=== PATIENT | female | born 1940 | race Caucasian/White ===

== ENCOUNTER 2017-02-11 11:20 | Inpatient (IN) | payer MEDICARE ==
[2017-02-11 11:54] VITALS: BMI 49.2
[2017-02-11] MEDS ORDERED: Docusate 100 MG CAP PO PRN (14:31)
[2017-02-11] MEDS ORDERED: Milk Of Magnesia 30 ML UDCUP PO PRN (14:31)
[2017-02-11] MEDS ORDERED: Loratadine 10 MG TAB PO PRN (14:31)
[2017-02-11] MEDS ORDERED: diphenhydrAMINE HCl 25 MG CAP PO PRN (14:31)
[2017-02-11] MEDS ORDERED: Ondansetron ODT 4 MG TAB PO PRN (14:31)
[2017-02-11] MEDS ORDERED: Zolpidem Tartrate 5 MG TAB PO PRN (14:31)
[2017-02-11] MEDS ORDERED: Albuterol Sulfate 2.5 mg/3 ml Neb NEB PRN (14:45)
[2017-02-11] MEDS ORDERED: Polyethylene Glycol 3350 17 GM Packet PO PRN (14:52)
[2017-02-11] MEDS: Acetaminophen 500 MG TAB PO PRN (20:51)
[2017-02-11] MEDS: Carvedilol 6.25 MG TAB PO SCH (20:51)
[2017-02-11] MEDS: traMADol HCl 50 MG TAB PO PRN (20:52)
--- NOTE | 2017-02-11 22:11 | HP ---
DATE OF SERVICE: 02/11/2017 CHIEF COMPLAINT: Knee surgery. HISTORY OF PRESENT ILLNESS: The patient is a 76-year-old female with a past medical history of asthma, hypertension, and osteoarthritis who was transferred from the [facility] following left knee surgery. The patient notes that she has had multiple knee surgeries on both legs and her orthopedist noticed a free floating bony fragment on x-ray several months ago and recommended that she have repeat surgery to remove that fragment. The patient is now in a knee immobilizer and this has been recommended to continue for 6-8 weeks. The patient is weightbearing as tolerated on that side. She is at [facility] to help with transfers and to get stronger. She is from the [facility] and states that the tramadol and Tylenol that she is being given for pain is controlling everything. The patient does have a history of hypertension and she states her blood pressures have been well controlled. She also has a history of asthma and notes that she has been wheezing off and on, but is only on albuterol p.r.n. at home. PAST MEDICAL HISTORY: 1. Hypertension. 2. Osteoarthritis. 3. Asthma. PAST SURGICAL HISTORY: 1. Multiple knee surgeries on both the left and the right knee including replacement and patellar tendon repairs. 2. Hysterectomy. 3. Bilateral cataract removal. 4. Cervical laminectomy. 5. Tonsillectomy and adenoidectomy as a child. FAMILY HISTORY: Patient's dad had cancer and diabetes and her aunt had breast cancer. ALLERGIES: CELEBREX, TORADOL, and NAPROSYN. It should be noted that the patient is able to tolerate meloxicam and has been on that for multiple years. SOCIAL HISTORY: The patient does have a remote smoking history, but quit many years ago. She states that at home, she would usually have one Cocktail several times a week at night. MEDICATIONS: 1. Aspirin 325 mg p.o. daily. 2. Cymbalta 30 mg p.o. daily. 3. Lasix 40 mg p.o. daily. 4. Protonix 40 mg p.o. daily. 5. Tramadol 50 mg p.o. q.6 hours p.r.n. pain. 6. Tylenol 1000 mg p.o. q.6 hours p.r.n. pain. REVIEW OF SYSTEMS: GENERAL: Negative for fever, chills, night sweats. EYES: Negative for vision changes and eye pain. HEENT: Negative for sore throat, rhinorrhea and nasal congestion. CARDIOVASCULAR: Negative for chest pain, palpitations, orthopnea and PND. RESPIRATORY: Negative for shortness of breath. Positive for occasional cough and wheezing. GASTROINTESTINAL: Negative for nausea, vomiting, diarrhea, and constipation. GENITOURINARY: Negative for dysuria, and polyuria. MUSCULOSKELETAL: Positive for knee pain that is controlled with oral medications. The patient's knee is in a knee immobilizer. Negative for other joint pains or swelling. SKIN: Negative for rashes or lesions. PSYCHIATRIC: Negative for anxiety and depression. NEUROLOGIC: Negative for syncope and seizure. PHYSICAL EXAMINATION: VITAL SIGNS: Temperature 99.2, pulse 78, respiration rate 18, O2 saturation 98 % on room air, blood pressure 147/71. GENERAL: The patient is awake, alert, and oriented, in no acute distress. EYES: Pupils are equal, round, reactive to light and accommodation. Extraocular muscles intact. ENT: Oropharynx and nasopharynx without erythema or exudate. NECK: Supple without lymphadenopathy, thyromegaly or bruits. RESPIRATORY: Few scattered expiratory wheezes in the upper lung loving. The patient has no retractions. CARDIOVASCULAR: Regular rate and rhythm without murmurs, gallops, or rubs. LUNGS: Clear to auscultation bilaterally without wheezing or rhonchi. ABDOMEN: Soft, obese, nontender to palpation with bowel sounds present. EXTREMITIES: There is no clubbing or cyanosis. The patient does have trace bilateral lower extremity edema. MUSCULOSKELETAL: The patient has a knee immobilizer and placed on the left side. Patient has full range of motion of other extremities. PSYCHIATRIC: The patient displays an appropriate mood and affect. NEUROLOGIC: Cranial nerves II through XII are grossly intact. Deep tendon reflexes are 2/4. ASSESSMENT AND PLAN: 1. Status post left knee surgery: We still obtaining records on the patient's knee surgery from the [facility]. My understanding is that the patient must remain in her immobilizer for 6-8 weeks and she is weightbearing as tolerated currently. We will continue tramadol and Tylenol as needed for pain. Also, restart meloxicam which she took at home. 2. Hypertension: Patient's blood pressure is slightly elevated today. We will restart her home medications and monitor and adjust as needed. 3. Asthma: The patient is wheezing a little bit this morning. We will add nebs as needed for shortness of breath and wheezing. 4. Osteoarthritis: restart the patient's NSAIDs. 5. Generalized deconditioning: The patient was unable to transfer in and out of bed without assistance. She will be worked with PT and OT in order that she gets strong enough to be able to go home. 6. Gastrointestinal prophylaxis with Protonix. 7. Deep venous thrombosis prophylaxis. The patient was placed on a full strength aspirin following surgery. KIKI
[2017-02-12] MEDS: traMADol HCl 50 MG TAB PO PRN ×2 (05:18→20:11)
[2017-02-12] MEDS: Acetaminophen 500 MG TAB PO PRN ×2 (05:18→20:11)
[2017-02-12 05:24] LABS: #Eosinphils 0.2 thou/uL (0.0-0.7); #Lymphocytes 0.8 thou/uL (1.20-3.40); #Monocytes 0.7 thou/uL (0.11-0.59); %Basophils 0.6 % (0.0-1.0); %Eosinophils 3.5 % (0.0-10.0); %Lymphocytes 11.1 % (21.0-51.0); %Monocytes 10.8 % (0.0-10.0); Hemoglobin 10.9 g/dL (12.0-16.0); Mean Corpuscular HGB CONC 33.3 g/dL (32.0-36.0); Mean Corpuscular Hemoglobin 30.8 pg (27.0-31.0); Mean Corpuscular Volume 92.7 fl (81.0-99.0); Mean Platelet Volume 7.9 fL (7.4-10.4); Platelet Count 162 thou/uL (130-400); RBC Distribution Width 12.8 % (11.5-14.5); Red Blood Cell (RBC) Count 3.53 mill/uL (4.20-5.40); White Blood Cell (WBC) Count 6.8 thou/uL (4.8-10.8)
[2017-02-12 05:36] LABS: Anion Gap 15 mmol/L (10-20); BUN (Urea Nitrogen) 13 mg/dL (9.8-20.1); Calc. Creatinine Clearance 149 mL/min (70-130); Calcium 8.7 mg/dL (7.8-10.44); Carbon Dioxide 25 mmol/L (23-31); Chloride 104 mmol/L (98-107); Estimated GFR-MDRD 88; Glucose 99 mg/dL (83-110); Potassium 4.2 mmol/L (3.5-5.1); Sodium 140 mmol/L (136-145)
[2017-02-12] MEDS: Calcium Carbonate + Vit D 1 TAB PO SCH (09:29)
[2017-02-12] MEDS: Furosemide 40 MG TAB PO SCH (09:29)
[2017-02-12] MEDS: Losartan Potassium 25 MG TAB PO SCH (09:29)
[2017-02-12] MEDS: Multivitamin W/ Minerals 1 TAB PO SCH (09:29)
[2017-02-12] MEDS: Carvedilol 6.25 MG TAB PO SCH ×2 (09:30→20:11)
[2017-02-12] MEDS: Aspirin 325 mg Enteric Coated Tablet PO SCH (09:30)
--- NOTE | 2017-02-12 11:26 | PRG ---
DATE OF SERVICE: 02/12/2017 SUBJECTIVE: The patient is a 76-year-old female, status post left knee surgery by Dr. Pratima ernst who is at [facility] for further rehabilitation. The patient had to be moved from one room to another overnight and states that she did not sleep very well. She states that the pain in her left knee i s increasing and she is requesting a pain pill at this time. She notes that she has wheeze some ove rnight, but her breathing is a little bit better this morning. OBJECTIVE: VITAL SIGNS: Temperature 97.9, pulse 87, respiration rate 20, O2 saturation 94% on room air, blood pressure 113/68. GENERAL: The patient is alert and oriented, in no acute distress. CARDIOVASCULAR: Regular rate and rhythm without murmurs, gallops, or rubs. LUNGS: Have a few expiratory wheezes in the upper lung loving, but there are no retractions or tach ypnea. ABDOMEN: Soft, nontender, nondistended with bowel sounds present. EXTREMITIES: There is no clubbing or cyanosis. MUSCULOSKELETAL: The patient has a left knee immobilizer in place. PSYCHIATRIC: The patient displays appropriate mood and affect. LABORATORY DATA: 1. CBC: WBC 6.8, hemoglobin 10.9, hematocrit 32.7, platelets 162. 2. BMP: Sodium 140, potassium 4.2, chloride 104, bicarbonate 25, BUN 13, creatinine 0.66, glucose 99, calcium 8.7. ASSESSMENT AND PLAN: 1. Status post left knee surgery: Physical therapy will be working with the patient. We have clar ified that Dr. Burks's note says that she is to be weightbearing as tolerated in an immobilizer for 6 -8 weeks. 2. Generalized deconditioning: The patient has had trouble with transfers after her hospitalizatio n. She will work with PT and OT to improve her strength before going home. 3. History of asthma: Patient is wheezing a little bit. I have discussed with her the albuterol n ebs are available for her. 4. Osteoarthritis: The patient has tramadol for pain and I restarted Meloxicam as needed for pain and the patient is going to request on of these tablets this morning. 5. Hypertension: The patient's blood pressure is controlled this morning. We will continue her cu rrent home medications. 6. Gastrointestinal prophylaxis with Protonix.
[2017-02-13] MEDS: traMADol HCl 50 MG TAB PO PRN ×2 (09:01→21:05)
[2017-02-13] MEDS: Acetaminophen 500 MG TAB PO PRN ×2 (09:05→21:04)
[2017-02-13] MEDS: Meloxicam 7.5 MG TAB PO PRN (09:10)
[2017-02-13] MEDS: Carvedilol 6.25 MG TAB PO SCH ×2 (09:10→21:06)
[2017-02-13] MEDS: Multivitamin W/ Minerals 1 TAB PO SCH (09:10)
[2017-02-13] MEDS: Aspirin 325 mg Enteric Coated Tablet PO SCH (09:10)
[2017-02-13] MEDS: Furosemide 40 MG TAB PO SCH ×2 (09:10)
[2017-02-13] MEDS: Calcium Carbonate + Vit D 1 TAB PO SCH (09:10)
[2017-02-13] MEDS: Losartan Potassium 25 MG TAB PO SCH (09:10)
[2017-02-14] MEDS: Losartan Potassium 25 MG TAB PO SCH (09:24)
[2017-02-14] MEDS: Meloxicam 7.5 MG TAB PO PRN (09:24)
[2017-02-14] MEDS: Furosemide 40 MG TAB PO SCH (09:24)
[2017-02-14] MEDS: Aspirin 325 mg Enteric Coated Tablet PO SCH (09:25)
[2017-02-14] MEDS: Carvedilol 6.25 MG TAB PO SCH ×2 (09:25→21:34)
[2017-02-14] MEDS: Acetaminophen 500 MG TAB PO PRN ×2 (09:25→21:34)
[2017-02-14] MEDS: traMADol HCl 50 MG TAB PO PRN ×2 (09:26→21:35)
[2017-02-14] MEDS: Calcium Carbonate + Vit D 1 TAB PO SCH (09:27)
[2017-02-14] MEDS: Multivitamin W/ Minerals 1 TAB PO SCH (09:28)
[2017-02-14] MEDS: cloNIDine HCl 0.1 MG TAB PO PRN (21:35)
--- NOTE | 2017-02-15 01:16 | PRG ---
DATE OF SERVICE: 02/14/2017 SUBJECTIVE: The patient is a 76-year-old female status post left knee surgery to repair the patella and the patellar tendon who is at [facility] for further rehabilitation. The patient states that her pain is improved since having the Meloxicam. She notes that she has only had 1 bowel movement in the past week, but she is not uncomfortable and she knows that the medications that she can use as needed. OBJECTIVE: VITAL SIGNS: Temperature 98.5, pulse 80, respiratory rate 20, O2 sat 97% on room air, blood pressure 197/79. GENERAL: The patient is awake, alert and oriented, in no acute distress. CARDIOVASCULAR: Regular rate and rhythm without murmurs, gallops, or rubs. LUNGS: Clear to auscultation bilaterally without wheezing or rhonchi. ABDOMEN: Soft, nontender, nondistended with bowel sounds present. EXTREMITIES: There is no clubbing or cyanosis. MUSCULOSKELETAL: The patient has a left knee brace in place for immobilization. PSYCHIATRIC: Patient displays an appropriate mood and affect during the exam. ASSESSMENT AND PLAN: 1. Status post left knee surgery to repair the patellar and patellar tendon and remove the foreign body. The patient will resume physical therapy tomorrow. Patient's left knee brace was swapped out for a different knee brace because the previous one was uncomfortable. Patient still remains in immobilization. 2. Deconditioning: The patient is working with physical therapy and occupational therapy to improve strength and ability to transfer. 3. Asthma: Patient's breathing is improved and wheezing is much better. 4. Osteoarthritis: Patient uses tramadol and meloxicam for pain. 5. Hypertension. Patient's blood pressure is quite elevated this morning. She will be given her home medications. We will give clonidine as needed, it remains elevated. 6. Constipation: Patient will use p.r.n. constipation medications that have already been ordered.. 7. Gastrointestinal prophylaxis with Protonix. MTDD
[2017-02-15] MEDS: Multivitamin W/ Minerals 1 TAB PO SCH (08:43)
[2017-02-15] MEDS: Calcium Carbonate + Vit D 1 TAB PO SCH (08:43)
[2017-02-15] MEDS: Losartan Potassium 25 MG TAB PO SCH (08:43)
[2017-02-15] MEDS: Furosemide 40 MG TAB PO SCH (08:44)
[2017-02-15] MEDS: Aspirin 325 mg Enteric Coated Tablet PO SCH (08:44)
[2017-02-15] MEDS: Carvedilol 6.25 MG TAB PO SCH ×2 (08:44→20:43)
[2017-02-15] MEDS: Acetaminophen 500 MG TAB PO PRN (08:50)
[2017-02-15] MEDS: traMADol HCl 50 MG TAB PO PRN (08:50)
[2017-02-15] MEDS ORDERED: ALPRAZolam 0.25 MG TAB PO PRN (10:38)
--- NOTE | 2017-02-15 10:59 | PRG ---
DATE OF SERVICE: 02/15/2017 SUBJECTIVE: The patient is a 76-year-old female status post left knee surgery to repair t he patella and patellar tendon. The patient continues to complain of discomfort with the brace that she currently has on her knee. She is also complaining about anxiety that usually occurs at night when she is by herself. She states that she has almost had panic attacks, but is able to talk herse lf down, but she has never let the nurses know when she is feeling this way. She does note that her pain is better improved and she has concerns about a different orthotic for the knee. OBJECTIVE: VITAL SIGNS: Temperature 98.2, pulse 74, respiration rate 18, O2 sat 96% on room air, blood pressur e 174/72. GENERAL: The patient is awake, alert, and oriented, in no acute distress. CARDIOVASCULAR: Regular rate and rhythm without murmurs, gallops, or rubs. LUNGS: Clear to auscultation bilaterally without wheezing or rhonchi. ABDOMEN: Soft, nontender, nondistended with bowel sounds present. EXTREMITIES: There is no clubbing or cyanosis. MUSCULOSKELETAL: The patient has a knee immobilizer on her left knee; however, it does appear to be slightly off center as the knee is not wind up correctly in the brace. There is no clubbing, cyano sis, or edema. LABORATORY: Culture of the left knee showed no organisms or growth at 12 hours. ASSESSMENT AND PLAN: 1. Status post left knee surgery to repair the patella: The patient will resume physical therapy t his morning. The patient is going to attempt to talk with [facility] to see about a be tter fitting brace, but she understands that the knee does have to be immobile and she cannot bend f or at least 6 weeks. 2. Generalized deconditioning: The patient is working with physical therapy to improve strength an d the ability to transfer. 3. Anxiety: We will add a low dose Xanax at night p.r.n. to help with panic attacks. 4. Asthma: The patient's breathing is stable. O2 sats are normal. 5. Osteoarthritis: Continue tramadol and Meloxicam. 6. Hypertension: The patient's blood pressure remains elevated. I have added p.r.n. clonidine for systolic greater than 180. We will monitor blood pressures today and if it remains elevated, we wi ll start adjusting her long-acting medications. 7. Constipation: Continue p.r.n. medications. 8. GI prophylaxis with Protonix.
[2017-02-16] MEDS: cloNIDine HCl 0.1 MG TAB PO PRN (07:26)
[2017-02-16] MEDS: Calcium Carbonate + Vit D 1 TAB PO SCH (09:05)
[2017-02-16] MEDS: Furosemide 40 MG TAB PO SCH (09:06)
[2017-02-16] MEDS: Multivitamin W/ Minerals 1 TAB PO SCH (09:06)
[2017-02-16] MEDS: Carvedilol 6.25 MG TAB PO SCH (09:06)
[2017-02-16] MEDS: Losartan Potassium 25 MG TAB PO SCH (09:06)
[2017-02-16] MEDS: Aspirin 325 mg Enteric Coated Tablet PO SCH (09:07)
[2017-02-16] MEDS ORDERED: Carvedilol 6.25 MG TAB PO SCH (11:18)
[2017-02-16 12:59] VITALS: BP 124/65; TEMP 98
--- NOTE | 2017-02-16 13:13 | DIS ---
DATE OF ADMISSION: 02/11/2017 DATE OF DISCHARGE: 02/16/2017 DISCHARGE DIAGNOSES: 1. Status post left knee surgery. 2. Hypertension. 3. Anxiety. 4. Asthma. 5. Arthritis. 6. Generalized deconditioning. HOSPITAL COURSE: The patient is a 76-year-old female who underwent left knee surgery with Dr. Burks at the [facility] 1 week ago. The patient was placed in a left knee i mmobilizer as she is not to bend her knee for 6-8 weeks. She was transferred to [facility] for further physical therapy. The patient lives in [place], but there was no skilled bed available when it was time for her discharge. The patient has done well during the course of her hospitalization. She ly s been working with physical therapy. Blood pressures have been elevated over the past several days and her carvedilol was increased to 25 mg p.o. b.i.d. this morning. The patient has been working t o try to move to skilled facility in [place] as that is her home town and her family would actually be able to visit her there. A skilled bed has become available in [place] and she is going to be tr ansferred today to continued physical therapy to work on transfers. DISCHARGE MEDICATIONS: 1. Tylenol 1000 mg p.o. q.6 h. p.r.n. pain. 2. Tramadol 50 mg p.o. q.6 h. p.r.n. pain. 3. Albuterol nebs q.6 h. p.r.n. shortness of breath. 4. Xanax 0.25 mg p.o. b.i.d. p.r.n. anxiety. 5. Aspirin 325 mg p.o. daily. 6. Calcium plus vitamin D 1 tab p.o. daily. 7. Carvedilol 25 mg p.o. b.i.d. 8. Cymbalta 30 mg p.o. daily. 9. Colace 100 mg p.o. b.i.d. p.r.n. constipation. 10. Lasix 40 mg p.o. daily. 11. Loratadine 10 mg p.o. p.r.n. allergies. 12. Losartan 100 mg p.o. daily. 13. Mobic 7.5 mg 1 p.o. daily p.r.n. pain. 14. Multivitamin 1 p.o. daily. 15. Protonix 40 mg p.o. daily. 16. Clonidine 0.1 mg p.o. q.4 h. p.r.n. systolic blood pressure greater than 180. DISPOSITION: 1. The patient will be transferred to a shelter facility in [place] and Dr. Avalos has been c inna and I have given him a check out on the patient. 2. Diet: Regular. 3. Activity: The patient is to remain in a knee immobilizer with no flexion for at least 6 weeks o r until cleared by Dr. Burks. She is weightbearing as tolerated. Thirty-five minutes were spent on arranging this patient's discharge.
== END 2017-02-16 12:50 | DRG 560 ==
LOC: UNDOADMIN 11:20 → NAV ACUTE 11:20
PROVIDERS: ADMIT Family Medicine; ATTEND Family Medicine
DX: S82.092D Other fracture of left patella, subsequent encounter for closed fracture with routine healing (principal); Z68.42 Body mass index [BMI] 45.0-49.9, adult; I10 Essential (primary) hypertension; F41.9 Anxiety disorder, unspecified; J45.909 Unspecified asthma, uncomplicated; M19.90 Unspecified osteoarthritis, unspecified site; X58.XXXD Exposure to other specified factors, subsequent encounter; Z87.891 Personal history of nicotine dependence; K59.00 Constipation, unspecified; E66.01 Morbid (severe) obesity due to excess calories
CPT/HCPCS: 36415; 80048; 85025; 87070; 87081; 87205